=== PATIENT | male | born 2000 | race Caucasian/White ===

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

== ENCOUNTER 2023-09-15 02:11 | Emergency (ER) | payer OTHER | END 2023-09-15 02:30 | disposition left against medical advice (07) | LOC: MED 02:11 | DX: R42 Dizziness and giddiness (principal); Z53.21 Procedure and treatment not carried out due to patient leaving prior to being seen by health care provider ==